=== PATIENT | female | born 1995 ===

== ENCOUNTER 2022-05-10 13:49 | Outpatient (CLI) | payer OTHER | END 2022-05-10 15:40 | disposition home or self-care (01) | LOC: PRENATAL 13:49 | PROVIDERS: ATTEND Obstetrics & Gynecology Maternal & Fetal Medicine | DX: O35.0XX0 Maternal care for (suspected) central nervous system malformation in fetus, not applicable or unspecified (principal); O35.3XX0 Maternal care for (suspected) damage to fetus from viral disease in mother, not applicable or unspecified; O14.90 Unspecified pre-eclampsia, unspecified trimester; Z3A.24 24 weeks gestation of pregnancy ==

== ENCOUNTER 2022-06-15 15:10 | Outpatient (CLI) | payer OTHER | END 2022-06-15 15:45 | disposition home or self-care (01) | LOC: PRENATAL 15:10 | PROVIDERS: ATTEND Obstetrics & Gynecology Maternal & Fetal Medicine | DX: O26.849 Uterine size-date discrepancy, unspecified trimester (principal); O36.5990 Maternal care for other known or suspected poor fetal growth, unspecified trimester, not applicable or unspecified; O34.219 Maternal care for unspecified type scar from previous cesarean delivery ==